=== PATIENT | male | born 1945 | race Caucasian/White ===

== ENCOUNTER 2018-11-14 10:17 | Day surgery (SDC) | payer OTHER ==
[~2018-11-14] VITALS: Ht 185.4 cm; Wt 108.0 kg
[~2018-11-14 10:17] MED LIST: ASPI81TA26 PO; COQ-100C2 PO; FISH1000 PO; HYDR12CA PO; INSULANT SC; LISI40TA PO; METF10004 PO; METO25TA4 PO; MOBI4TAB PO; MULT1TAB10 PO; NS 1,000 ML IV ONE; ROSU20TA4 PO; TRUL0.5I SC; VITA50005 PO
[2018-11-14] MEDS ORDERED: PROPOFOL 200 MG/20 ML VIAL As Ordered ONE ×2 (11:25→12:16)
--- NOTE | 2018-11-14 11:43 | ROOR ---
Patient Name: Ronan Andrews Procedure Date: 11/14/2018 11:12 AM Date of : 1945 Age: 73 Room: [facility] Gender: Male Note Status: Finalized Procedure: Colonoscopy Indications: Screening for colorectal malignant neoplasm Providers: Tico Hall MD Referring MD: Miguel Espinoza Md Requesting Provider: Medicines: Monitored Anesthesia Care Complications: No immediate complications. Procedure: Pre-Anesthesia Assessment: - Prior to the procedure, a History and Physical was performed, and patient medications and allergies were reviewed. The patient is competent. The risks and benefits of the procedure and the sedation options and risks were discussed with the patient. All questions were answered and informed consent was obtained. Patient identification and proposed procedure were verified by the physician, the nurse and the anesthesiologist in the endoscopy suite. Mental Status Examination: alert and oriented. Airway Examination: normal oropharyngeal airway and neck mobility. Respiratory Examination: clear to auscultation. CV Examination: normal. Prophylactic Antibiotics: The patient does not require prophylactic antibiotics. Prior Anticoagulants: The patient has taken aspirin, last dose was day of procedure. ASA Grade Assessment: III - A patient with severe systemic disease. After reviewing the risks and benefits, the patient was deemed in satisfactory condition to undergo the procedure. The anesthesia plan was to use monitored anesthesia care (MAC). Immediately prior to administration of medications, the patient was re-assessed for adequacy to receive sedatives. The heart rate, respiratory rate, oxygen saturations, blood pressure, adequacy of pulmonary ventilation, and response to care were monitored throughout the procedure. The physical status of the patient was re-assessed after the procedure. The Colonoscope was introduced through the anus and advanced to the cecum, identified by appendiceal orifice and ileocecal valve. The colonoscopy was somewhat difficult due to poor endoscopic visualization. Successful completion of the procedure was aided by lavage. The patient tolerated the procedure well. The quality of the bowel preparation was adequate to identify polyps. Findings: The perianal and digital rectal examinations were normal. A few small-mouthed diverticula were found in the sigmoid colon and descending colon. The entire examined colon appeared normal on direct and retroflexion views. Impression: - Diverticulosis in the sigmoid colon and in the descending colon. - The entire examined colon is normal on direct and retroflexion views. - No specimens collected. Recommendation: - Discharge patient to home (ambulatory). - High fiber diet indefinitely. - Repeat colonoscopy in 10 years for screening purposes. Tico Hall MD Tico Hall MD 11/14/2018 11:43:28 AM Electronically signed by Tico Hall MD Number of Addenda: 0 Note Initiated On: 11/14/2018 11:12 AM Estimated Blood Loss: Estimated blood loss: none.
[2018-11-14 12:00] VITALS: BP 131/79
== END 2018-11-14 12:17 | disposition home or self-care (01) ==
LOC: M OPP 10:17
PROVIDERS: ATTEND Surgery
DX: Z12.11 Encounter for screening for malignant neoplasm of colon (principal); K57.30 Diverticulosis of large intestine without perforation or abscess without bleeding; E10.9 Type 1 diabetes mellitus without complications; I10 Essential (primary) hypertension; E78.00 Pure hypercholesterolemia, unspecified; Z79.82 Long term (current) use of aspirin; Z79.84 Long term (current) use of oral hypoglycemic drugs; Z79.899 Other long term (current) drug therapy

== ENCOUNTER 2019-05-14 17:03 | Emergency (ER) | payer OTHER, BC ==
[~2019-05-14] VITALS: Ht 182.9 cm; Wt 106.3 kg
[~2019-05-14 17:03] MED LIST changes: -NS 1,000 ML IV ONE; -ROSU20TA4 PO; +ROSU20TA5 PO
[2019-05-14] MEDS ORDERED: METF-791 PO ×2 (17:17)
[2019-05-14 18:43] LABS: BASO # 0.1 10^3/uL (0.0-0.2); EOS # 0.3 10^3/uL (0.0-0.5); EOS % 3.3 % (0.0-3.0); HEMOGLOBIN 14.4 g/dl (13.5-17.5); LYMPH # 1.3 10^3/uL (1.5-5.0); LYMPH % 14.6 % (24.0-44.0); MEAN CORPUSCULAR HEMOGLOBIN 33.3 pg (27.0-33.0); MEAN CORPUSCULAR HGB CONC 34.3 g/dl (32.0-36.5); MEAN CORPUSCULAR VOLUME 97.2 fl (80.0-96.0); MONO # 1.1 10^3/uL (0.0-0.8); MONO % 12.7 % (0.0-5.0); NEUTROPHILS # 5.8 10^3/uL (1.5-8.5); NEUTROPHILS % 67.8 % (36.0-66.0); PLATELET COUNT, AUTOMATED 183 10^3/uL (150-450); RED BLOOD COUNT 4.32 10^6/uL (4.30-6.10); WHITE BLOOD COUNT 8.6 10^3/uL (4.0-10.0)
[2019-05-14 19:04] LABS: PROTHROMBIN TIME 12.9 SECONDS (11.8-14.0)
[2019-05-14 19:12] LABS: ALBUMIN 3.7 GM/DL (3.2-5.2); ALT/SGPT 29 U/L (12-78); BILIRUBIN,DIRECT 0.2 MG/DL (0.0-0.2); BILIRUBIN,TOTAL 0.7 MG/DL (0.2-1.0); BLOOD UREA NITROGEN 23 MG/DL (7-18); CALCIUM LEVEL 8.9 MG/DL (8.8-10.2); CARBON DIOXIDE LEVEL 28 MEQ/L (21-32); CHLORIDE LEVEL 107 MEQ/L (98-107); CK-MB VALUE MASS 1.8 NG/ML (<3.6); CPK CREATINE PHOSPHOKINASE 112 U/L (39-308); CREATININE FOR GFR 0.75 MG/DL (0.70-1.30); FREE T4 0.82 NG/DL (0.76-1.46); GLOMERULAR FILTRATION RATE > 60.0 (>42); GLUCOSE, FASTING 153 MG/DL (70-100); LIPASE 231 U/L (73-393); MAGNESIUM LEVEL 2.1 MG/DL (1.8-2.4); MB/CK RELATIVE INDEX 1.61 (< OR =4); PHOSPHORUS LEVEL 2.6 MG/DL (2.5-4.9); SODIUM LEVEL 142 MEQ/L (136-145); TOTAL PROTEIN 6.4 GM/DL (6.4-8.2); TROPONIN I < 0.02 NG/ML (< 0.10)
[2019-05-14 19:25] LABS: MONO SCRN NEGATIVE (NEGATIVE)
--- NOTE | 2019-05-14 19:49 | REP ---
HISTORY: Generalized weakness. COMPARISON: 05/14/2014 FINDINGS: The superior mediastinal structures are midline. The cardiac silhouette is unremarkable in size, shape and position. The diaphragmatic surfaces of the lungs are regular and the costophrenic angles are clear. The pulmonary [place] are clear. The imaged osseous structures are intact. IMPRESSION: There is no acute cardiopulmonary disease. No change from the prior exam. Electronically Signed by Joaquin Gasca DO 05/15/2019 02:10 P
[2019-05-14 20:18] LABS: INFLUENZA A AMPLIFICATION NEGATIVE (NEGATIVE); INFLUENZA B AMPLIFICATION NEGATIVE (NEGATIVE)
--- NOTE | 2019-05-14 20:45 | ECGEPIP ---
[facility] - ED Test Date: 2019-05-14 Pat Name: NICHOLAS GALLARDO Department: Room: - Gender: Male Girl Friday: isis : 1945 Requested By: SEKOU Wilson Order Number: [id number] Reading MD: Nikko Vivas Measurements Intervals [place] Rate: 82 P: 60 NH: 216 QRS: -9 QRSD: 102 T: 54 QT: 358 QTc: 419 Interpretive Statements SINUS RHYTHM WITH FIRST DEGREE AV BLOCK BASELINE ARTIFACT AFFECTS INTERPRETATION NO PRIORS FOR COMPARISON Electronically Signed on 05-14-2019 20:45:30 EDT by Nikko Vivas
[2019-05-14] MEDS ORDERED: MULTCAP PO (20:56)
[2019-05-14] MEDS ORDERED: COQ1200C3 PO (20:57)
[2019-05-14 21:16] VITALS: BP 136/84
[2019-05-14] MEDS ORDERED: CO Q100C10 PO (21:17)
[2019-05-16 14:07] LABS: Lyme Disease IgG/IgM Antibodie <0.91 ISR (0.00-0.90); Lyme Disease IgM Ab Quantitati <0.80 index (0.00-0.79)
== END 2019-05-14 21:42 | disposition home or self-care (01) ==
LOC: M ED 17:03
DX: R53.1 Weakness (principal); R53.83 Other fatigue; E11.9 Type 2 diabetes mellitus without complications; I10 Essential (primary) hypertension; Z87.891 Personal history of nicotine dependence; Z79.82 Long term (current) use of aspirin; Z79.4 Long term (current) use of insulin; Z79.899 Other long term (current) drug therapy

== ENCOUNTER → 2020-08-08 | Outpatient (CLI) | payer SELFPAY ==
[~2020-08-08] MED LIST changes: +CO Q100C10 PO; +COQ1200C3 PO; +METF-838 PO; +MULTCAP PO
== END ==
LOC: M LABSMTC 08:27
PROVIDERS: ATTEND Pediatrics
DX: Z20.828 Contact with and (suspected) exposure to other viral communicable diseases (principal)

== ENCOUNTER → 2021-01-15 | Outpatient (CLI) | payer OTHER, BC ==
[~2021-01-15] MED LIST changes: +D 101000 PO; +JARD1TAB3 PO; -LISI40TA PO; +LISI40TA4 PO; +NESI25TA PO; +VITMTA PO
== END ==
LOC: M LABSMTC 10:51
PROVIDERS: ATTEND Anesthesiology
DX: Z01.812 Encounter for preprocedural laboratory examination (principal); Z20.822 Contact with and (suspected) exposure to COVID-19

== ENCOUNTER 2021-03-06 10:18 | Emergency (ER) | payer OTHER ==
[~2021-03-06] VITALS: Ht 182.9 cm; Wt 106.1 kg
[2021-03-06 11:02] LABS: BASO # 0.1 10^3/uL (0.0-0.2); EOS # 0.3 10^3/uL (0.0-0.5); EOS % 3.9 % (0.0-3.0); HEMATOCRIT 44.6 % (42.0-52.0); HEMOGLOBIN 14.9 g/dl (13.5-17.5); LYMPH # 0.6 10^3/uL (1.5-5.0); LYMPH % 8.4 % (24.0-44.0); MEAN CORPUSCULAR HEMOGLOBIN 32.5 pg (27.0-33.0); MEAN CORPUSCULAR HGB CONC 33.4 g/dl (32.0-36.5); MEAN CORPUSCULAR VOLUME 97.2 fl (80.0-96.0); MONO # 0.9 10^3/uL (0.0-0.8); MONO % 11.8 % (2.0-8.0); NEUTROPHILS # 5.3 10^3/uL (1.5-8.5); NEUTROPHILS % 74.2 % (36.0-66.0); PLATELET COUNT, AUTOMATED 227 10^3/uL (150-450); RED BLOOD COUNT 4.59 10^6/uL (4.30-6.10); WHITE BLOOD COUNT 7.2 10^3/uL (4.0-10.0)
--- NOTE | 2021-03-06 11:07 | REP ---
INDICATION: CVA - Nursing interventions must not delay CT. COMPARISON: None. TECHNIQUE: Contiguous axial projection images were obtained through the brain. FINDINGS: There is moderate diffuse cerebral atrophy with concomitant ventriculomegaly. There is no evidence of acute intracranial hemorrhage or infarction. There are no abnormal intracranial masses or mass effects. Skull base and calvarium are normal. There are a few opacified ethmoidal air cells on the left. IMPRESSION: 1. Moderate atrophy. 2. Chronic ethmoidal sinusitis. <Electronically signed by Laz Nieves > 03/06/21 [id number]
--- NOTE | 2021-03-06 11:21 | REP ---
INDICATION: CVA. COMPARISON: PA and lateral chest: 05/14/2019. TECHNIQUE: AP sitting portable chest examination was performed. FINDINGS: The lungs are clear. 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 The heart size is normal. There are no bony abnormalities. IMPRESSION: No evidence of acute cardiopulmonary pathology. No significant change. <Electronically signed by Laz Nieves > 03/06/21 [id number]
[2021-03-06 11:27] LABS: CK-MB VALUE MASS 1.6 NG/ML (<3.6); CPK CREATINE PHOSPHOKINASE 69 U/L (39-308); MB/CK RELATIVE INDEX 2.32 (< OR =4); TROPONIN I < 0.02 NG/ML (< 0.10)
[2021-03-06 11:58] VITALS: BP 168/90
--- NOTE | 2021-03-06 14:31 | ECGEPIP ---
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
== END 2021-03-06 12:07 | disposition left against medical advice (07) ==
LOC: M ED 10:18
DX: I63.9 Cerebral infarction, unspecified (principal); I10 Essential (primary) hypertension; E11.9 Type 2 diabetes mellitus without complications; Z79.899 Other long term (current) drug therapy; Z79.82 Long term (current) use of aspirin; Z79.4 Long term (current) use of insulin

== ENCOUNTER → 2024-07-24 | Outpatient (CLI) | payer MEDICARE, OTHER ==
[~2024-07-24] MED LIST changes: -ROSU20TA5 PO; +ROSU20TA86 PO
== END ==
LOC: M CARPUL 16:00
PROVIDERS: ATTEND Physician Assistant
DX: I35.0 Nonrheumatic aortic (valve) stenosis (principal)

== ENCOUNTER → 2025-06-03 | Outpatient (CLI) | payer OTHER, MEDICARE ==
[~2025-06-03] MED LIST changes: +HYDR12.510 PO; -HYDR12CA PO; +LISI40TA10 PO; -LISI40TA4 PO
== END ==
LOC: M CARPUL 14:55
PROVIDERS: ATTEND Physician Assistant
DX: I35.0 Nonrheumatic aortic (valve) stenosis (principal); I77.810 Thoracic aortic ectasia